=== PATIENT | female | born 1960 | race Caucasian/White ===

== ENCOUNTER → 2019-05-21 | Day surgery (SDC) | payer OTHER ==
[~2019-05-21] MED LIST: ALLEGRA ALLERGY60 MG PO; ASPIRIN BUFFER325 MG PO; BENADRYL25 MG PO; CALCIUM 600 +1 EAC8 PO; CALCIUM500 MG; COZAAR25 MG PO; DEXAMETHASONE SOD PHOS INJ 4 MG/ML VIAL ONE; DIPHENHYDRAMINE HCL INJ 50 MG/ML VIAL ONE; FAMOTIDINE 20 MG/2 ML VIAL IV ONE; FENTANYL CITRATE/PF 100MCG/2 ML INJ ONE; GENERESS FE CH1 EACH PO; IBUPROFEN 800MG/ 250ML 250 ML IV ONE; LIDOCAINE HCL 2% LOCAL INJ 5 ML SDV VIAL INJ ONE; LISINOPRIL20 MG PO; MEDROL4 MG/DOSE- PO; MELATONIN 1 MG1 EACH PO; METOPROLOL TART25 MG PO; METOPROLOL TART50 MG PO; MIDAZOLAM HCL 2 MG/2 ML VIAL ONE; NIACIN50 MG PO; NIFEDIPINE XL30 MG PO; ONDANSETRON HCL INJ 2MG/ML 2ML 2 MG/ML VIAL ONE; ONE DAILY FOR1 EACH PO; PREDNISONE20 MG PO; PROPOFOL IV EMULSION 10 MG/ML 20 ML VIAL ONE; SEVOFLURANE INHAL SOLN 250 ML PEN BTL ONE; SILVER NITRATE SWABS ONE; TRIAMTERENE-HC1 EAC2 PO; ZANTAC 7575 MG PO; ZANTAC150 MG; ZANTAC150 MG PO
--- OUTSIDE RECORDS SUMMARY | 2019-05-21 11:21 | XMS REPORT | Continuity of Care Document ---
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 [facility] [place] cell carcinoma of unspecified part of face 10/09/2017 01/09/2018 [facility] LILO CELL CARCINOMA OF THIGH Active 08/26/2000 [facility] C4A.72 LILO CELL CARCEINOMA Active 08/26/2000 [facility] LILO CELL CARCINOMA, UNSPECIFIED Active [facility] 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 [facility] Medications No Data Provided for This Section Allergies, Adverse Reactions, Alerts No Known Medication Allergies Immunizations No Data Provided for This Section Results No Data Provided for This Section Pathology Reports No Data Provided for This Section Diagnostic Reports Report Value Date Source PET CT Tumor [id number] F 18 FDG PET/CT DATE SKULL BASE TO MID THIGH:DATE: 05/15/2017 4:02 PM CDT CLINICAL INDICATION: lilo cell cancer -initial staging Recent blood sugar level: 103 mg/dl Total body radiation dose: CTDI: 11.86 DLP: 225.07 TECHNIQUE: Following the intravenous administration of 15.1mCi of F-18 FDG, tomographic images were obtained from the skull base to the proximal thighs, after an interval of [address] was performed for purposes of attenuation correction and anatomical mapping. COMPARISON: Thyroid ultrasound 03/04/2008 FINDINGS: HEAD AND NECK: The visualized portion of the brain and head and neck demonstrates physiologic FDG uptake. Multinodular thyroid gland with largest 1 cm thyroid nodule without abnormal activity. CHEST: No evidence of hypermetabolic pulmonary nodules or lymphadenopathy. ABDOMEN AND PELVIS: Diffuse hepatic steatosis. Cholelithiasis. The organs and the bowel demonstrate physiologic FDG activity. No hypermetabolic lymphadenopathy. MUSCULOSKELETAL: The visualized portion of the skeleton and musculature demonstrate physiologic FDG uptake. IMPRESSION: No evidence of hypermetabolic disease. Non-FDG avid 1 cm thyroid nodule in the isthmus. Please see guidance below. Recommendations for f/u of Incidental Thyroid Nodules (ITN) found on CT, MRI, NM and Extrathyroidal US based on the ACR white paper and [place] 3-tiered system for managing ITNs: Further evaluation by thyroid US recommended for: Solitary ITN with high risk imaging features (locally invasive nodule or suspicious lymph nodes) Solitary ITN of any size in pediatric patients <=18 years of age Solitary ITN >=1 cm in axial plane in patients > 18 and < 35 years of age Solitary ITN >=1.5 cm in axial plane in patients >=35 years of age Heterogeneous enlarged thyroid gland ITN avid on FDG-PET or other nuclear medicine (MIBI and octreotide) scans. FNA biopsy is also recommended for PET avid nodules. For multiple thyroid nodules, the above recommendations for solitary ITN are to be applied to the largest nodule. No US or f/u recommended for ITNs without high risk features in patients with limited life expectancy or significant co-morbidities, unless clinically warranted. These recommendations do not apply to patients with increased risk for thyroid cancer or to patients with symptomatic thyroid disease. 05/16/2017 [facility] Consultation Notes No Data Provided for This Section Discharge Summaries No Data Provided for This Section History and Physicals No Data Provided for This Section Vital Signs No Data Provided for This Section Encounters Location Location Details Encounter Type Encounter Number Reason For Visit Attending Provider ADM Date DC Date Status Source [facility] Outpatient Imaging [facility] Outpt Diag Services [id number] Jeff Saleem 05/15/2017 05/16/2017 [facility] Outpatient [id number] Venkataterese Alvarenga 06/12/2017 06/13/2017 [facility] Recurring [id number] Venkata Alvarenga 06/27/2017 07/27/2017 [facility] Recurring [id number] Venkata Alvarenga 07/27/2017 08/26/2017 [facility] Outpatient [id number] Venkata Alvarenga 09/09/2017 09/10/2017 [facility] Outpatient [id number] Jeff Saleem 10/03/2017 10/04/2017 [facility] Outpatient [id number] Venkata Alvarenga 12/12/2017 12/13/2017 [facility] Procedures No Data Provided for This Section Assessment and Plan No Data Provided for This Section Plan of Care No Data Provided for This Section Social History Social History Date Source No data available for this section 10/04/2017 [facility] No data available for this section [facility]16[facility] Family History No Data Provided for This Section Advance Directives No Data Provided for This Section Functional Status No Data Provided for This Section
--- OUTSIDE RECORDS SUMMARY | 2019-05-21 11:21 | XMS REPORT | Summary of Care ---
Author Author [facility] Organization [facility] Address Unknown Phone Unavailable Encounter HQ Encntr_alias(FIN) [id number] Date(s): 06/27/17 - 07/26/17 [facility] [address] [place] [address]- [phone] Discharge Disposition: Home or Self Care Attending Physician: Venkata Alvarenga MD Vital Signs No data available for this section Problem List No data available for this section Allergies, Adverse Reactions, Alerts No data available for this section Medications No data available for this section Results No data available for this section Immunizations No data available for this section Procedures No data available for this section Social History No data available for this section Assessment and Plan No data available for this section
--- OUTSIDE RECORDS SUMMARY | 2019-05-21 11:21 | XMS REPORT | Summary of Care ---
Author Author [facility] Outpatient Imaging [facility] Outpatient Imaging [facility] Address Unknown Phone Unavailable Encounter HQ Encntr_alias(FIN) [id number] Date(s): 05/15/17 - 05/15/17 [facility] Outpatient Imaging [address] [phone] Discharge Disposition: Home or Self Care Attending Physician: Jeff Saleem MD Vital Signs No data available for [...]
--- OUTSIDE RECORDS SUMMARY | 2019-05-21 11:21 | XMS REPORT | Summary of Care ---
Author Author [facility] Organization [facility] Address Unknown Phone Unavailable Encounter HQ Encntr_alias(FIN) [id number] Date(s): 07/27/17 - 08/25/17 [facility] [address] [place] [address]- Discharge Disposition: Home or Self Care Attending [...]
--- OUTSIDE RECORDS SUMMARY | 2019-05-21 11:21 | XMS REPORT | Summary of Care ---
Author Author [facility] Organization [facility] Address Unknown Phone Unavailable Encounter HQ Encntr_alias(FIN) [id number] Date(s): 06/12/17 - 06/12/17 [facility] [address] [place] [address]- [phone] Discharge Disposition: Home or Self Care Attending [...]
--- OUTSIDE RECORDS SUMMARY | 2019-05-21 11:22 | XMS REPORT | Summary of Care ---
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
--- OUTSIDE RECORDS SUMMARY | 2019-05-21 11:22 | XMS REPORT | Summary of Care ---
Author Author [facility] Organization [facility] Address Unknown Phone Unavailable Encounter HQ Encntr_alias(FIN) [id number] Date(s): 12/12/17 - 12/12/17 [facility] [address] [place] [address]- Discharge Disposition: Home or Self Care Attending [...]
[2019-05-21 12:42] LABS: BASOPHILS % 0.5 % (0.0-1.0); EOSINOPHILS % 0.3 % (0.0-6.0); HEMATOCRIT 41.4 % (34.2-44.1); HEMOGLOBIN 14.1 g/dL (12.0-16.0); LYMPHOCYTES # (AUTO) 1.3 (1.0-3.2); LYMPHOCYTES % 15.9 % (18.0-39.1); MEAN CORPUSCULAR HGB CONC 34.1 g/dL (31-35); MEAN CORPUSCULAR VOLUME 85.2 fL (81-99); MONOCYTES # (AUTO) 0.6 (0.2-0.8); MONOCYTES % 7.3 % (4.4-11.3); NEUTROPHILS # (AUTO) 6.1 (2.1-6.9); NEUTROPHILS % 75.5 % (38.7-80.0); PLATELET COUNT 291 x10e3/uL (140-360); RED BLOOD COUNT 4.86 x10e6/uL (3.6-5.1); RED CELL DISTRIBUTION WIDTH 14.3 % (11.7-14.4)
[2019-05-21 15:15] VITALS: BP 146/69
--- NOTE | 2019-05-21 20:32 | Operative Report ---
DATE OF PROCEDURE: 05/21/2019 SURGEON: Obinna Zurita MD PREOPERATIVE DIAGNOSES: Postmenopausal bleeding, endometrial polyp. POSTOPERATIVE DIAGNOSES: Postmenopausal bleeding, endometrial polyp. PROCEDURE: Hysteroscopy, D and C with excision of endometrial polyp. ANESTHESIA: General with Dr. Ruiz. INDICATION FOR OPERATION: The patient is a 59-year-old female presenting with postmenopausal bleeding. Endometrial biopsy had been benign in November. However on exam, currently there is a polyp noted within the cervix. She is therefore taken to the operating room at this time for D and C, hysteroscopy, and removal of the polyp. FINDINGS OF SURGERY: There was a 3-4 cm long polyp protruding from the cervix, which was attached to the anterior uterine wall. It was excised easily. The endometrium was otherwise thin. Bleeding was stopped with silver nitrate sticks to the cervix in implantation site within the endometrium. DESCRIPTION OF PROCEDURE: The patient was taken to the operating room, placed on the table in supine position. General anesthesia was administered. The patient was placed in the lithotomy position. The perineum was prepared and draped in the usual sterile manner. The bladder was drained by in and out catheterization. Pelvic exam revealed a normal size anteverted uterus with no adnexal masses and from the cervix, a 2 cm polyp was noted protruding. At this point, a Graves speculum was placed in the vagina. The polyp was visualized. The tenaculum was placed on the anterior lip of the cervix and then using dressing forceps, the polyp was excised and sent to Pathology. We then performed hysteroscopy. We identified the ostia. We noticed that there was still quite a bit of polyp left. We therefore removed the hysteroscope and used the dressing forceps to grab the anterior wall of the endometrium where the polyp was implanted. There was a large piece of the vessel of polyp was excised. We looked back in with hysteroscope, found that the polyp had been removed, and the bleeding was greatly decreased. There were a few small bleeders on the internal os of the cervix. These were treated with silver nitrate sticks and pressure with good cessation of the bleeding. The hysteroscope had been removed and no further bleeding was noted. The tenaculum was removed. No bleeding was noted from the tenaculum site. The procedure was deemed terminated. There were no complications noted. Estimated blood loss was 10 mL. The patient tolerated the procedure well, was transferred from the operating room to recovery room in stable condition. MD MARCIAL Blake/ALTHEA /[id number]
== END | disposition home or self-care (01) ==
LOC: OR 11:19
PROVIDERS: ATTEND Obstetrics & Gynecology
DX: N84.0 Polyp of corpus uteri (principal); N84.1 Polyp of cervix uteri; I10 Essential (primary) hypertension; M26.609 Unspecified temporomandibular joint disorder, unspecified side; M19.90 Unspecified osteoarthritis, unspecified site; Z88.8 Allergy status to other drugs, medicaments and biological substances; Z87.891 Personal history of nicotine dependence
CPT/HCPCS: 36415; 58558; 85025; 88305; 93005; J1100; J1200; J2001; J2250; J2405; J2704; J3010